=== PATIENT | female | born 1985 | race Caucasian/White ===

== ENCOUNTER 2017-05-16 20:00 | Emergency (ER) | payer SELFPAY ==
[2017-05-16 20:12] VITALS: RESP 16
--- NOTE | 2017-05-16 20:30 | EDPHY ---
H & P HPI/ROS: CHIEF COMPLAINT: Ankle injury HISTORY OF PRESENT ILLNESS: Patient arrives by EMS and is seen at time of arrival. She was stepping off of a treadmill when her left ankle buckled. She has sudden onset of severe pain in the distal leg. No pain in the proximal fibular knee. Pain was severe and constant. EMS was notified due to deformity noted. There is no bleeding or laceration. She was placed in a same splint at the scene. CMS reportedly intact. She has no pain or injury elsewhere. She is feeling much better in the splint and after IV fentanyl in route. She has not attempted to bear weight on as it obviously dislocates per EMS. No other associated complaints or modifying factors. No previous medical history PRIOR ORTHO INJURIES: None ESTABLISHED ORTHOPEDIST: None REVIEW OF SYSTEMS: Ten systems reviewed and are negative unless otherwise noted in the HPI EXAMINATION General Appearance: Alert, no distress Cardiovascular: Pulses normal throughout. Symmetric DP pulses 2+. Symmetric PT pulses 2+. Brisk cap refill Neurological: A&O, sensory symmetric, strength symmetric Skin: Warm and dry, no rash. No lacerations or abrasions. There is ecchymosis on the left ankle Extremities: Left lower extremity is immobilized with the same splint. There is tenderness on both malleoli. There is deformity of the ankle. No open punctures or lacerations. Neurovascular intact distal to the injury. Range of motion not tested due to deformity and pain. No tenderness of the proximal fibula or anywhere on the knee. Minimal tenderness on the right ankle. No crepitus or deformity there. She is neurovascular intact in both lower extremities with no heel tenderness in either foot. Psychiatric: Mood and affect normal DIFFERENTIAL DIAGNOSES: Including but not limited to dislocation, fracture, fracture dislocation, contusion, sprain, strain MDM: 8:05 p.m. suspected Left ankle fracture with possible dislocation. No pain at the proximal fibula. Tib-fib has been ordered. She is neurovascular intact. Splint remains in place. 8:17 p.m. I have reviewed the images on the mobile x-ray device. Without the aid of the radiologist, there appears to be bimalleolar versus trimalleolar fracture with minimal displacement of the tibial fragment. I will consult Orthopedics 8:25 p.m. I discussed the case with the on-call orthopedic Renee [facility]. She will review the images with her attending physician return my call. 8:40 p.m. I discussed the case again with the on-call orthopedic PAmeng. She has discussed the case with her attending physician. The attending physician like the patient placed in a posterior splint with stirrup. She is to be nonweightbearing. She is to have pain medication as needed. She is to follow up in their office tomorrow morning at 9:00 a.m. to discuss surgical repair tomorrow afternoon. She is to be NPO after 7:00 a.m. tomorrow morning. I have discussed this with the patient and she understands this plan. We have adhere to the recommendations of the orthopedic PA. 8:50 p.m. She is now also complaining of right ankle pain. There is some tenderness of the malleoli but no deformity. I have ordered an x-ray of the right ankle. 9:55 p.m. Right ankle sprain with no fracture as read by me. Proceed with the above plan for the left bimalleolar fracture. She is comfortable this plan. I have checked her post splinting, she remains neurovascular intact. We discussed strict nonweightbearing instructions. We discussed return to ED precautions. We discussed tomorrow's outpatient follow-up and surgical plan. She is comfortable with this plan, and discharged home stable condition. ED Precautions: Worsening pain. Erythema, edema, cyanosis, pallor, paresthesia or anesthesia. SUPERVISION: This patient was independently evaluated without direct examination by the attending physician. Case was discussed with attending physician. 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.,bronchial [place] - Social History Smoking Status: Current some day smoker Constitutional: Initial Vital Signs Temperature (C) 98.2 F 05/16/17 20:10 Heart Rate 111 H 05/16/17 20:10 Respiratory Rate 16 05/16/17 20:10 Blood Pressure 132/78 H 05/16/17 20:10 O2 Sat (%) 100 05/16/17 20:10 O2 Delivery Mode Room Air Allergies/Adverse Reactions: No Known Allergies Allergy (Verified 10/19/16 20:16) Home Medications: Medication Instructions Recorded Ortho Tri-Cyclen 02/23/14 oxyCODONE HCL/ACETAMINOPHEN 1 each PO Q4-6PRN PRN #20 tablet 05/16/17 [Percocet 5-325 mg Tablet] Medical Decision Making - Diagnostics Imaging Results: Imaging Impressions Tibia/Fibula X-Ray 05/16/17 20:06 Impression: Fractures of distal tibia and fibula. Unstable tibiotalar joint. Ankle X-Ray 05/16/17 21:00 Impression: Tiny talofibular avulsion. - Data Points Medications Given: Discontinued Medications Fentanyl (Sublimaze) 50 mcg IVP EDNOW ONE Stop: 05/16/17 20:41 Last Admin: 05/16/17 21:00 Dose: 50 mcg Oxycodone/Acetaminophen (Percocet 5/325) 1 tab PO EDNOW ONE Stop: 05/16/17 20:41 Last Admin: 05/16/17 21:01 Dose: 1 tab Oxycodone/Acetaminophen (Percocet 5/325mg Prepack#4) 1 btl TAKEHOME EDNOW ONE Stop: 05/16/17 21:17 Last Admin: 05/16/17 21:16 Dose: 1 btl Departure - Departure Disposition: Home, Routine, Self-Care Clinical Impression: Bimalleolar fracture of left ankle Qualifiers: Encounter type: initial encounter Fracture type: closed Qualified Code(s): S82.842A - Displaced bimalleolar fracture of left lower leg, initial encounter for closed fracture Right ankle sprain Qualifiers: Encounter type: initial encounter Involved ligament of ankle: unspecified ligament Qualified Code(s): S93.401A - Sprain of unspecified ligament of right ankle, initial encounter Condition: Good Instructions: Oxycodone/Acetaminophen (By mouth), Ankle Fracture (ED) Additional Instructions: 1. Strict nonweightbearing 2. Nothing to eat or drink after 7:00 a.m. on May 17 3. Given appointment with Dr. Hendrix at 9:00 a.m. at the [place] office across the street from the [facility] 4. Return to the emergency department for any worsening pain, numbness, tingling , fever, chills, redness Referrals: Patient,NotPresent [Unknown] - As per Instructions Doe Hendrix MD [Medical Doctor] - As per Instructions Stand Alone Forms: Work Excuse Prescriptions: oxyCODONE HCL/ACETAMINOPHEN [Percocet 5-325 mg Tablet] 1 each PO Q4-6PRN PRN # 20 tablet PRN Reason: Pain, Breakthrough
[2017-05-16] MEDS ORDERED: OXYCODONE/APAP 5/325 TAB PO ONE (20:40)
[2017-05-16] MEDS ORDERED: fentaNYL 100 MCG/2 ML INJ IVP ONE (20:40)
[2017-05-16] MEDS ORDERED: OXYCODONE/APAP 5/325MG PREPACK#4 BTL TAKEHOME ONE ×2 (21:15→21:16)
[2017-05-16 22:16] VITALS: BP 109/73; PULSE 115; TEMP 98.6; O2SAT 98
== END 2017-05-16 22:16 | disposition home or self-care (01) ==
LOC: EDUNIT#
DX: S82.842A Displaced bimalleolar fracture of left lower leg, initial encounter for closed fracture (principal); S93.401A Sprain of unspecified ligament of right ankle, initial encounter; F17.200 Nicotine dependence, unspecified, uncomplicated; X58.XXXA Exposure to other specified factors, initial encounter; Y99.8 Other external cause status; Y93.89 Activity, other specified
CPT/HCPCS: 96374; J3010